=== PATIENT | male | born 1995 | race Two or more races ===

== ENCOUNTER → 2018-03-15 | Emergency (ER) | payer OTHER ==
[~2018-03-15] VITALS: Ht 175.3 cm; Wt 71.7 kg
[~2018-03-15] MED LIST: CARAFATE SU1 G/10 ML PO
== END | disposition designated cancer center or children's hospital (05) ==
LOC: ER 17:25
DX: M54.2 Cervicalgia (principal); I60.6 Nontraumatic subarachnoid hemorrhage from other intracranial arteries

== ENCOUNTER 2019-04-07 10:09 | Emergency (ER) | payer OTHER ==
[~2019-04-07] VITALS: Ht 177.8 cm; Wt 81.6 kg
== END 2019-04-07 13:40 | disposition home or self-care (01) ==
LOC: ER 10:09
DX: K52.89 Other specified noninfective gastroenteritis and colitis (principal)

== ENCOUNTER 2020-05-31 12:09 | Emergency (ER) | payer OTHER ==
[~2020-05-31] VITALS: Ht 177.8 cm; Wt 82.1 kg
[2020-05-31] MEDS ORDERED: VISTARIL50 MG PO (16:16)
[2020-05-31] MEDS ORDERED: PEPCID AC20 MG PO (16:16)
[2020-05-31] MEDS ORDERED: ORPHENADRINE C100 MG PO (16:16)
== END 2020-05-31 16:20 | disposition home or self-care (01) ==
LOC: ER 12:09
DX: R07.89 Other chest pain (principal); F41.0 Panic disorder [episodic paroxysmal anxiety]; Z03.818 Encounter for observation for suspected exposure to other biological agents ruled out

== ENCOUNTER 2021-02-11 12:55 | Emergency (ER) | payer OTHER ==
[~2021-02-11] VITALS: Ht 177.8 cm; Wt 88.5 kg
[~2021-02-11 12:55] MED LIST changes: +ORPHENADRINE C100 MG PO; +PEPCID AC20 MG PO; +VISTARIL50 MG PO
== END 2021-02-11 17:59 | disposition home or self-care (01) ==
LOC: ER 12:55
DX: M54.89 Other dorsalgia (principal)

== ENCOUNTER 2022-04-07 21:23 | Emergency (ER) | payer OTHER ==
[~2022-04-07] VITALS: Ht 177.8 cm; Wt 87.1 kg
== END 2022-04-08 05:23 | disposition home or self-care (01) ==
LOC: ER 21:23
DX: R10.32 Left lower quadrant pain (principal)